=== PATIENT | female | born 1945 | race Caucasian/White ===

== ENCOUNTER 2025-02-25 13:56 | Outpatient (RCR) | payer MEDICARE, SELFPAY | END 2025-03-10 14:50 | disposition home or self-care (01) | LOC: PT 13:56 | PROVIDERS: PCP Nurse Practitioner Family; Visit Provider Nurse Practitioner Family | DX: M51.362 Other intervertebral disc degeneration, lumbar region with discogenic back pain and lower extremity pain (principal); M54.16 Radiculopathy, lumbar region; R26.9 Unspecified abnormalities of gait and mobility; R26.89 Other abnormalities of gait and mobility; R29.3 Abnormal posture | CPT/HCPCS: 97110; 97161 ==